=== PATIENT | female | born 1955 | race Caucasian/White ===

== ENCOUNTER 2018-06-16 20:11 | Emergency (ER) | payer OTHER, MEDICARE ==
[~2018-06-16] VITALS: Ht 165.1 cm; Wt 83.5 kg
[~2018-06-16 20:11] MED LIST: GLUCOTROL5 MG; KEFLEX500 MG PO; LIPITOR 20 MG T20 M1; SINGULAIR 10 MG10 M1 PO
[2018-06-16 20:51] LABS: HEMATOCRIT 43.6 % (37.0-47.0); HEMOGLOBIN 14.8 gm/dL (12.0-15.0); MCH 29.9 pg (26.0-34.0); MCV 88.2 fL (80.0-100.0); PLATELET COUNT 299 thou/uL (150-400); RBC 4.95 mil/uL (4.20-5.00); RDW 14.9 % (10.5-14.5); WBC 9.4 thou/uL (4.0-11.0)
[2018-06-16 20:59] LABS: ANION GAP 11 mmol/L (7-16); BUN 9 mg/dL (7-18); CALCIUM 9.5 mg/dL (8.5-10.1); CHLORIDE 97 mmol/L (98-107); CO2 24 mmol/L (21-32); CREATININE 0.6 mg/dL (0.6-1.0); GLUCOSE 153 mg/dL (74-106); POTASSIUM 3.7 mmol/L (3.5-5.1); SODIUM 132 mmol/L (136-145)
[2018-06-16 21:07] LABS: TROPONIN-I <0.06 ng/mL (<0.06)
[2018-06-16] MEDS ORDERED: TESSALON PERLE100 MG PO (21:32)
[2018-06-16] MEDS ORDERED: PREDNISONE 20 M20 MG PO (21:32)
[2018-06-16 21:40] LABS: ABSOLUTE NEUTROPHILS 6.2 thou/uL (1.4-8.2); ANISOCYTOSIS 1+
[2018-06-16 22:30] VITALS: BP 161/60
== END 2018-06-16 22:32 | disposition home or self-care (01) ==
LOC: ER 20:11
PROVIDERS: Emergency Medicine
DX: R06.2 Wheezing (principal); R06.02 Shortness of breath; I10 Essential (primary) hypertension; E11.9 Type 2 diabetes mellitus without complications; E78.00 Pure hypercholesterolemia, unspecified; F17.210 Nicotine dependence, cigarettes, uncomplicated; Z88.5 Allergy status to narcotic agent